=== PATIENT | female | born 2000 | race African-American/Black ===

== ENCOUNTER 2025-05-31 14:39 | Emergency (ER) | payer SELFPAY ==
[2025-05-31 14:58] VITALS: BP 138/78
--- NOTE | 2025-05-31 15:32 | ED.GENMED ---
History of Present Illness
General
Chief Complaint: Allergic Reaction
Time Seen by Provider: 05/31/25 15:27
History of Present Illness
History of Present Illness:
24-year-old female with no significant past medical history presents to the emergency department for evaluation of abrupt onset of vomiting and diffuse itching/hives developing after eating an orange while at work today. Never had a reaction like
this to oranges but does react to seafood in a similar manner as well as pineapples. 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 Denies any chest tightness or wheezing.
Review of Systems
Review of Systems
Allergies reviewed?: Yes
All Other Systems: ROS reviewed and negative except as documented in HPI and ROS
Phy Exam
Physical Exam
Physical Exam:
GEN: Well appearing, NAD, WDWN
HEENT: Oral mucosa moist, no scleral icterus, oral mucosa clear, no oropharyngeal edema
Cardiac: Regular rate and rhythm, no murmur
Lung: No respiratory distress, no tachypnea, no wheezes
MSK: No gross deformity or injuries
Skin: Good color, no pallor or jaundice, diffuse urticarial rash to the torso as well as upper and lower extremities
Neuro: AO x3, moves all extremities freely
Psych: Calm, cooperative
Course
Orders/Labs/Results
Orders:
Orders
05/31/25 15:32
Diphenhydramine [Benadryl] 25 mg IM NOW STA
Famotidine [Pepcid] 20 mg PO NOW STA
Vital Signs
Initial and Last Documented VS:
Initial Vital Signs
Temp Pulse Resp BP Pulse Ox
97.8 F 89 18 138/78 99
05/31/25 14:58 05/31/25 14:58 05/31/25 14:58 05/31/25 14:58 05/31/25 14:58
Last Documented Vital Signs
Temp Pulse Resp BP Pulse Ox
97.8 F 89 18 138/78 99
05/31/25 14:58 05/31/25 14:58 05/31/25 14:58 05/31/25 14:58 05/31/25 15:34
MDM/Problems Addressed
MDM/Problems Addressed:
Patient improved with diphenhydramine administration, advised to avoid this type of food going forward
*Pulse Oximetry
SaO2: 99
Oxygen Mode of Delivery: Room air
Patient hypoxic: no
*Critical Care Note
Total Time (30-74mins, 75-104mins- exclusive of procedures): Not Applicable
ED Attending Note
-
Portions of this chart may have been created with voice recognition software.� Occasional wrong word or��sound alike� substitutions may have occurred due to the inherent limitations of voice recognition software.
Discharge Plan
Departure
Patient Disposition: Home (Routine Discharge)
Date of Disposition: 05/31/25
Time of Disposition: 16:08
Patient with high blood pressure during this ER visit?: No
Discharge Problem:
Allergic reaction to food
Instructions: Hives (DC)
Referrals:
NONE,* [Family Provider, Internal Medicine]
Activity Restrictions/Additional Instructions:
Continue to take over the counter Benadryl (diphenhydramine) 25-50mg every 6-8 hours as needed for itching
Avoid oranges in the future
You may take over the counter pepcid (famotidine) or Tums for acid reflux sensation
Return to the ER if you develop chest tightness, difficulty breathing, or persistent vomiting
Interventions
Interventions:
*Risk Screen - Suicide Last Done: 05/31/25 14:58
*General Assessment Last Done: 05/31/25 14:58
*Neglect/Abuse Screening Last Done: 05/31/25 14:58
*ED COVID-19 Vaccine History Last Done: 05/31/25 14:58
*ED Influenza Vaccine History Last Done: 05/31/25 14:58
[facility] Fall Risk Assessment Tool Last Done: 05/31/25 15:25
*Nursing Disposition Last Done: 05/31/25 16:14
ED- Cardiac Assessment Last Done: 05/31/25 15:25
ED- Pulmonary Assessment Last Done: 05/31/25 15:25
ED-Skin Assessment Last Done: 05/31/25 15:25
Discharge Date and Time
Discharge Date/Time: 05/31/25 16:15
Print Language: PANAMANIAN
[2025-05-31] MEDS: PEPCID 20 MG PO (15:36)
[2025-05-31] MEDS: BENADRYL 25 MG IM (15:36)
== END 2025-05-31 16:15 | disposition home or self-care (01) ==
LOC: EMR 14:39
PROVIDERS: EMERGENCY PHYSICIAN Emergency Medicine
DX: T78.19XA Other adverse food reactions, not elsewhere classified, initial encounter (principal); X58.XXXA Exposure to other specified factors, initial encounter; R11.10 Vomiting, unspecified; L27.2 Dermatitis due to ingested food
CPT/HCPCS: 99284; 96372